=== PATIENT | female | born 1975 | race Caucasian/White ===

== ENCOUNTER → 2017-09-25 | Emergency (ER) | payer OTHER ==
[~2017-09-25] VITALS: Ht 165.1 cm; Wt 63.0 kg
[~2017-09-25] MED LIST: AMOXICILLIN500 MG PO
== END | disposition left against medical advice (07) ==
LOC: ER 16:49
DX: Z53.20 Procedure and treatment not carried out because of patient's decision for unspecified reasons (principal)